=== PATIENT | female | born 1950 | race Caucasian/White ===

== ENCOUNTER 2016-12-23 18:58 | Emergency (ER) | payer MEDICARE, OTHER ==
[~2016-12-23] VITALS: Ht 154.9 cm; Wt 68.2 kg
[~2016-12-23 18:58] MED LIST: ASP81TEC PO; COU25 PO; COU5 PO; LOV40 SQ; SMV40T PO
[2016-12-23 19:03] VITALS: BP 175/78; PULSE 91; RESP 16; O2SAT 98
[2016-12-23] MEDS ORDERED: WARF5TAB7 PO (19:30)
[2016-12-23] MEDS ORDERED: DIPH25CA6 PO (19:30)
[2016-12-23] MEDS ORDERED: ASPI-973 PO (19:30)
[2016-12-23] MEDS ORDERED: ACET-2605 PO (19:30)
[2016-12-23] MEDS ORDERED: SIMV40TA5 PO (19:30)
--- NOTE | 2016-12-23 19:33 | ED.REPORT ---
HPI-Chest Pain 40 and Over Date of Service Dec 23, 2016 ED Provider: Kim Lake MD Patient is a 66 year old with a history of PE on Warfarin who presents to the ED complaining of intermittent chest heaviness for the past three days. She currently denies symptoms. The patient states that the first episode started as left sided chest pain and she felt diaphoretic and hot. The next morning there wasn't a pain but she noticed a chest heaviness after walking into a store. At that time she didn't have shortness of breath and wasn't diaphoretic. The patient also reports that her lateral right leg below the knee has been intermittently tingling. She denies headache, nausea, vomiting, abdominal pain or other symptoms. Patient reports that she had a similar chest pain a few months ago that resolved after a few minutes. Nursing Notes Stated Complaint: CHEST PAIN Chief Complaint: Chest Pain Nursing Notes Reviewed: Yes Allergies: Coded Allergies: Enoxaparin (Verified Allergy, Mild, SHORTNESS OF BREATH, RASH, 03/11/09) Scheduled Aspirin (Aspirin) 81 Mg Tablet 81 MG PO DAILY Simvastatin (Simvastatin) 40 Mg Tablet 40 MG PO DAILY Warfarin Sodium (Warfarin Sodium) 5 Mg Tablet 2.5 MG PO DAILY Scheduled PRN Acetaminophen/Diphenhydramine (Tylenol Pm Ex-Strength Caplet) 500 Mg-25 Mg Tablet 1-2 EACH PO HS PRN PRN For Insomnia diphenhydrAMINE HCl (Benadryl) 25 Mg Capsule 25-50 MG PO HS PRN PRN General Time Seen by MD: 19:32 Chief Complaint Chest pain Hx Obtained From: Patient Arrived By: Walk-in Sudden in Onset?: Yes Onset Occurred: 2 days ago Symptom Duration: Intermittent Location: : Chest left Quality: Heaviness Radiation: : Does not radiate Severity: Current: No pain currently Severity: Maximum: Mild Similar Sx Previous: Yes Past Medical History Past Medical History PE Family History father of IA Social History Other Social History: Good social support, Ambulatory Status Independent Review of Systems Constitutional: Denies: Chills, Fever Respiratory: Denies: Non-productive cough, Shortness of breath Cardiovascular: Reports: Chest pain GI: Denies: Nausea, Vomiting Skin: Reports Diaphoresis, Denies Itching, Denies Rash Neurologic: Reports: Numbness, Denies: Weakness Complete sys rev & neg: except as marked. Physical Exam Initial Vital Signs Vital Signs (First) Date Time Temp Pulse Resp B/P Pulse Ox O2 Delivery O2 Flow Rate FiO2 12/23/16 19:03 36.1 91 16 175/78 98 Room Air 12/23/16 20:04 1 Initial VS: Reviewed, Vital signs abnormal General/Constitutional: Awake, Alert, No acute distress Respiratory / Chest: Atraumatic, Breath sounds NL, Breath sounds = bilat, No respiratory distress Cardiovascular: Heart rate NL, Regular rhythm, Heart sounds NL Periph CV / BP Differential: Positive: Peripheral pulses 2+ Abdomen: Atraumatic, Soft, Non-tender Neck: Atraumatic, Supple Lower Extremity / Pelvis / MS: Atraumatic, No edema Skin: Atraumatic, Color NL, No rash, Warm, Dry Neurologic: Oriented X3, Speech NL, No motor deficits, No sensory deficits, CN II - XII intact Psychiatric: Affect NL, Mood NL Head / Eyes: Atraumatic, Normocephalic, PERRL, EOMI Upper Extremity / MS: Atraumatic, Full range of motion Interpretation & Diagnostics Lab Results Interpretation Result Diagram: 12/23/16191912/23/161919 Test 12/23/16 19:20 White Blood Count 7.8th/mm3 (3.8-10.1) Red Blood Count 4.48mil/mm3 (3.90-5.20) Hemoglobin 13.7g/dL (12.0-15.6) Hematocrit 40.8% (35.0-46.0) Mean Corpuscular Volume 91.1fL (81-100) Mean Corpuscular Hemoglobin 30.6pg (27.0-35.0) Mean Corpuscular Hemoglobin Concent 33.6% (32.0-37.0) Red Cell Distribution Width 13.0% (12.3-15.4) Platelet Count 377bil/L (150-400) Neutrophils (%) (Auto) 59.8% (40-74) Lymphocytes (%) (Auto) 25.4% (14-46) Monocytes (%) (Auto) 13.5% (4-12) Eosinophils (%) (Auto) 0.8% (0-5) Basophils (%) (Auto) 0.4% (0-3) Prothrombin Time 23.1sec (8.1-12.5) Prothromb Time International Ratio 2.13ratio Sodium Level 141mEq/L (134-144) Potassium Level 4.0mEq/L (3.5-5.2) Chloride Level 101mEq/L (97-108) Carbon Dioxide Level 24mmol/L (18-29) Blood Urea Nitrogen 16mg/dL (8-27) Creatinine 0.60mg/dL (0.57-1.00) Estimat Glomerular Filtration Rate 142mL/min (>59) Glucose Level 128mg/dL (60-99) Calcium Level 9.3mg/dL (8.5-10.1) Magnesium Level 2.0mg/dL (1.6-2.6) Total Bilirubin 0.2mg/dL (0.0-1.2) Aspartate Amino Transf (AST/SGOT) 28U/L (0-50) Alanine Aminotransferase (ALT/SGPT) 27U/L (0-32) Alkaline Phosphatase 58U/L (25-165) Troponin T < 0.010ug/L (0.0-0.011) Total Protein 7.3g/dL (6.4-8.4) Albumin 4.5g/dL (3.4-5.0) Hold Cai Top Tube Received (Received) ECG Interpretation ECG Interpretation: normal intervals normal axis no acute ST changes Time: 19:11 Interpreted by: ED physician Normal ECG Interpretation: Normal rate (88), Normal sinus rhythm X-Ray Chest Interpretation Chest Xray Interpretation: IMPRESSION: Normal for age, source of chest pain is not found. Dictated by: Burt Paez M.D. on 12/23/2016 at 20:55 Approved by: Burt Paez M.D. on 12/23/2016 at 20:55 View: Portable, 1 view Interpretation / Wet Read by: Interpret - Radiologist Re-Eval/Medical Decision Med Decision/Clinical Course The patient presents with 3 days of symptoms or worse symptoms are on the first day. She became concerned because she continued to have symptoms although she currently denies any symptoms. Given the duration of symptoms she has ruled out for IA. The patient that this could still be cardiac chest pain she needs a stress test. A partial list of differential diagnoses considered were acute coronary syndrome, hypertensive emergency, pulmonary embolus, pneumonia, and aortic dissection. The patient's neurologic symptoms to the right lower extremity or on the lateral side only and are consistent with radicular symptoms, she is not currently having any symptoms. Time of Eval: 21:43 Re-Evaluation/Progress Note: Discussed results and plan for discharge. Patient understands and agrees to plan. All questions were addressed. Counseled Regarding: Diagnosis, Lab results, Need for follow-up, When/why to return to ED Discharge & Departure Primary Impression: Chest pain Chest pain type: unspecified Qualified Code: R07.9 - Chest pain, unspecified Disposition: Home Discharge Condition All VS Reviewed: Yes Condition: Stable Patient Instructions: Chest Pain (ED) Additional Instructions: Your labs and chest X-ray were normal and reassuring. You can take Tylenol as needed for pain. You need to have a stress test, call your doctor tomorrow to work at scheduling one. You have not had a heart attack however this could still be your heart. If you develop chest pain with the symptoms you had a couple of days ago you need to call 911. Return to the emergency department if you develop any new or concerning symptoms. Referrals: Nate Menchaca MD (PCP) [facility] Attestation Portions of this note were transcribed by Tricia Liz. I, Dr. Lake personally performed the history, physical exam and medical decision-making; I reviewed and confirmed the accuracy of the information in the transcribed note. Signed by: Emiliano Crowell, 12/23/16 copies to: Nate Menchaca MD, Jena M MD Dec 23, 2016 19:33 Liudmila Liz Dec 23, 2016 20:04
[2016-12-23 19:44] LABS: BASOPHILS % (AUTO) 0.4 % (0-3); EOSINOPHILS % (AUTO) 0.8 % (0-5); MONOCYTES % (AUTO) 13.5 % (4-12); Mean Corpuscular Hemoglobin 30.6 pg (27.0-35.0); Mean Corpuscular Volume 91.1 fL (81-100); NEUTROPHILS % (AUTO) 59.8 % (40-74); Platelet Count 377 bil/L (150-400)
[2016-12-23 20:00] LABS: INR 2.13 ratio
[2016-12-23 20:04] VITALS: BP 164/78; PULSE 93; RESP 17; O2SAT 99
[2016-12-23] MEDS ORDERED: MeTOProlol 1 mg/mL 5 mL Inj IVPUSH ONE (20:05)
[2016-12-23 20:15] LABS: TROPONIN T < 0.010 ug/L (0.0-0.011)
[2016-12-23 20:28] VITALS: BP 161/61; PULSE 72; RESP 17; O2SAT 95
--- NOTE | 2016-12-23 20:57 | DRSVH ---
PROCEDURE: X-RAY CHEST ONE VIEW, PORTABLE ([id number]) INDICATIONS: CHEST PAIN TECHNIQUE: One view of the chest was acquired. COMPARISON: None. FINDINGS: Surgical changes and devices: None. Lungs and pleura: No pleural effusions or pneumothorax. Lungs are clear. Mediastinum: Mediastinal contours appear normal. Heart size is normal. Bones and chest wall: No suspicious bony lesions. Overlying soft tissues appear unremarkable. IMPRESSION: Normal for age, source of chest pain is not found. Dictated by: Burt Paez M.D. on 12/23/2016 at 20:55 Approved by: Burt Paez M.D. on 12/23/2016 at 20:55
[2016-12-23 21:59] VITALS: BP 144/69; PULSE 72; RESP 16; O2SAT 96
[2016-12-23 22:09] VITALS: BP 144/69; PULSE 72; RESP 16; O2SAT 96
== END 2016-12-23 22:10 | disposition home or self-care (01) ==
LOC: SED 18:58
DX: R07.9 Chest pain, unspecified (principal); Z79.82 Long term (current) use of aspirin; Z79.01 Long term (current) use of anticoagulants; Z88.8 Allergy status to other drugs, medicaments and biological substances